=== PATIENT | male | born 1935 | race Caucasian/White ===

== ENCOUNTER → 2016-10-07 | Outpatient (CLI) | payer MEDICARE, BC ==
[2016-10-07 14:11] LABS: Blood Urea Nitrogen 27 mg/dL (9-20); Non-African American GFR(MDRD) >60 (>60 ml/min/1.73 sqM)
--- NOTE | 2016-10-07 15:22 | CT ---
EXAMINATION TYPE: CT angio chest DATE OF EXAM: 10/07/2016 2:32 PM COMPARISON: CT CAP January 31, 2013 HISTORY: Prior studies on PACS. Patient has chest pain and pleurisy that is not improving and is havi ng shortness of breath CT DLP: 389.3 mGycm Automated exposure control for dose reduction was used. CONTRAST: CTA scan of the thorax is performed with IV Contrast, patient injected with 100 mL of Omnipaque 350, pulmonary embolism protocol. MIP images are created and reviewed. 3D reconstructed images are creat ed on an independent workstation and reviewed. FINDINGS: LUNGS: There is respiratory motion artifact seen making evaluation suboptimal. Dependent atelectatic change in both lower lobes is present. There is calcified 7 mm subpleural nodule in the right midlung anteriorly on axial image 61. No suspicious infiltrate is present. No concerning parenchymal mass or noncalcified nodule is seen. No pleural effusion or pneumothorax is present bilaterally. MEDIASTINUM: There is satisfactory enhancement of the pulmonary artery and its branches, there is no CT evidence for pulmonary embolism. There are no greater than 1 cm noncalcified hilar or mediastinal lymph nodes. There are slightly prominent calcified right hilar and subcarinal lymph nodes present presumed product of old granulomatous disease. No pericardial effusion is seen. Heart size is upper l imits of normal. 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 Main pulmonar y artery is dilated at 3.9 cm on axial image 66 larger versus adjacent aorta, CT findings suggesting underlying pulmonary artery hypertension. Some coronary artery calcification is present. There is ane urysmal change at aortic root level measuring approximately 4.0 cm in diameter on coronal image 17 se jeffrey 7 felt less prominent versus prior. OTHER: There is stable small size hiatal hernia. Multilevel spurring in the spine is redemonstrated. IMPRESSION: 1. NO CT EVIDENCE FOR PULMONARY EMBOLISM. 2.
== END | disposition home or self-care (01) ==
LOC: RADCTMAIN 13:42
PROVIDERS: ATTEND Internal Medicine
DX: R07.9 Chest pain, unspecified (principal); R06.02 Shortness of breath
CPT/HCPCS: 82565; 84520; 71275; 36415; Q9967; 96372; 99213

== ENCOUNTER → 2016-10-13 | Outpatient (CLI) | payer MEDICARE, BC ==
[2016-10-13 14:31] LABS: Basophils % (A) 0 %; CH 31.8; CHCM 33.1; Eosinophils % (A) 0 %; HCT 47.5 % (39.0-53.0); HDW 2.09; HGB 15.6 gm/dL (13.0-17.5); Luc # (Auto) 0.08; Luc % (Auto) 1; Lymphocytes # (A) 0.8 k/uL (1.0-4.8); Lymphocytes % (A) 9 %; MCH 31.5 pg (25.0-35.0); MCHC 32.7 g/dL (31.0-37.0); MCV 96.3 fL (80.0-100.0); Mean Platelet Volume 7.6; Monocytes # (A) 0.4 k/uL (0-1.0); Monocytes % (A) 5 %; Neutrophils # (A) 7.4 k/uL (1.3-7.7); Neutrophils % (A) 85 %; RBC 4.93 m/uL (4.30-5.90); RDW 12.9 % (11.5-15.5); WBC 8.8 k/uL (3.8-10.6); WBC (Perox) 8.77
[2016-10-13 15:25] LABS: Erythrocyte Sedimentation Rate 4 mm/hr (0-15)
== END | disposition home or self-care (01) ==
LOC: LABWHC1 13:55
PROVIDERS: ATTEND Internal Medicine
DX: M25.512 Pain in left shoulder (principal)
CPT/HCPCS: 36415; 82310; 84165; 85025; 85652; 99213

== ENCOUNTER → 2016-10-14 | Outpatient (CLI) | payer MEDICARE, BC ==
--- NOTE | 2016-10-14 11:25 | XR ---
EXAMINATION TYPE: XR thoracic spine complete DATE OF EXAM: 10/14/2016 11:16 AM CLINICAL HISTORY: pain TECHNIQUE: Frontal, lateral, and swimmer's view of thoracic spine are obtained. COMPARISON: None. FINDINGS: Thoracic spine show satisfactory alignment without evidence of acute fracture or dislocatio n. Vertebral body heights are preserved. Moderate degenerative disc space narrowing. Visualized ri bs are unremarkable. IMPRESSION: No acute fracture or dislocation is seen in the thoracic spine. ICD 10 NO FRACTURE, INIT IAL EVALUATION
--- NOTE | 2016-10-14 11:26 | XR ---
EXAMINATION TYPE: XR scapula LT DATE OF EXAM: 10/14/2016 11:16 AM COMPARISON: NONE HISTORY: Pain TECHNIQUE: 2 views of the left scapula are submitted. FINDINGS: The scapula is grossly intact. No evidence of fracture or lesion. Postoperative changes of rotator cuff repair. IMPRESSION: No distinct abnormality of the left scapula.
--- NOTE | 2016-10-14 14:58 | NM ---
EXAMINATION TYPE: NM bone scan whole body DATE OF EXAM: 10/14/2016 2:24 PM COMPARISON: NONE HISTORY: C79.51 hx of prostate ca w/pain Delayed whole-body scanning was performed following the injection of 26.1 mCi Tc 99m MDP. Images acq uired 3 hours post injection. FINDINGS: There is no intense uptake to suggest metastatic disease or osseous lesion. Degenerative uptake is se en about the shoulders, sternoclavicular joints, thoracic spine as well as the lumbar spine. IMPRESSION: No scintigraphic evidence to suggest metastatic disease at this time. Degenerative changes as noted.
== END | disposition home or self-care (01) ==
LOC: RADNMMAIN 10:30
PROVIDERS: ATTEND Internal Medicine
DX: M54.6 Pain in thoracic spine (principal); M15.9 Polyosteoarthritis, unspecified
CPT/HCPCS: 72072; 73010; 78306; A9503

== ENCOUNTER → 2018-11-26 | Outpatient (CLI) | payer MEDICARE, BC ==
--- NOTE | 2018-11-26 15:48 | XR ---
EXAMINATION TYPE: XR ribs RT DATE OF EXAM: 11/26/2018 COMPARISON: Chest x-ray 11/26/2018 HISTORY: 11th posterior rib fracture TECHNIQUE: Right ribs are examined in 2 projections FINDINGS: Reported posterior right 11th rib fracture is not identified on these images. No displaced rib fractures are evident. No pneumothorax is evident IMPRESSION: 1. No rib abnormality identified
== END | disposition home or self-care (01) ==
LOC: RADXRMAIN 15:11
PROVIDERS: ATTEND Internal Medicine
DX: S22.31XA Fracture of one rib, right side, initial encounter for closed fracture (principal)

== ENCOUNTER → 2019-07-08 | Outpatient (CLI) | payer MEDICARE, BC ==
--- NOTE | 2019-07-08 13:32 | CT ---
EXAMINATION TYPE: CT angio chest DATE OF EXAM: 07/08/2019 COMPARISON: CTA chest April 06, 2017 HISTORY: SOB CT DLP: 401.6 mGycm. Automated Exposure Control for Dose Reduction was Utilized. CONTRAST: CTA scan of the thorax is performed with IV Contrast, patient injected with 77 mL of Isovue 370, pulm onary embolism protocol. MIP Images are created on CT scanner and reviewed. FINDINGS: LUNGS: Motion artifact degradation is seen making evaluation suboptimal particularly for subcentimete r nodules. Partially calcified subpleural nodule measuring 8 mm anterior right midlung axial image 65 is redemonstrated. No pleural effusion or pneumothorax is seen. Some mild scattered atelectatic beal ge. MEDIASTINUM: There is slightly suboptimal bolus with some heterogeneity in the periphery but no convi ncing CT evidence for pulmonary embolism. There are no greater than 1 cm hilar or mediastinal lymph nodes. No pericardial effusion is seen. Heart size is upper limits of normal. Post-CABG changes wit h mediastinal clips and sternal wires is present. Enlarged pulmonary arteries are present, CT finding s consistent with underlying pulmonary artery hypertension. OTHER: [id number] multilevel spondylosis spine. IMPRESSION: Suboptimal study without convincing CT evidence for acute pulmonary embolism. No suspicio us new or acute pulmonary process is clearly seen.
== END | disposition home or self-care (01) ==
LOC: RADCTMAIN 11:49
PROVIDERS: ATTEND Internal Medicine
DX: R06.02 Shortness of breath (principal)
CPT/HCPCS: 82565; 84520; 71275; 36415; Q9967